=== PATIENT | male | born 1965 | race Caucasian/White ===

== ENCOUNTER 2020-02-17 02:17 | Emergency (ER) | payer OTHER, SELFPAY ==
--- NOTE | ~2020-02-17 | XR_ITS ---
XR chest 2V DATE: 02/17/2020 02:39 INDICATION: Shortness of breath. Chest pressure. Left arm numbness. TECHNIQUE: PA and lateral views COMPARISON: None FINDINGS: Bilateral hyperinflation, relative flattening of the diaphragm and large right apical bulla , consistent with bullous emphysema. No pulmonary infiltrate or consolidation, pleural effusion or pu lmonary vascular congestion or pneumothorax. Normal heart size. No hilar or mediastinal enlargement. IMPRESSION: Bullous emphysema Reviewed, dictated and finalized at location A. IMPRESSION: Bullous emphysema
--- NOTE | 2020-02-17 02:22 | ED.SOB ---
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 EMS states they were called about 20 minutes ago. Pt's sx are worsened when he lays down. EMS states that before the pt left his house via EMS, he began to feel better. Pt had a similar episode last week when he was driving home. Pt states that he had chest pain and dyspnea before taking an ASA. He states that he had to pin puller to take the medication d/t having blurry vision. He states that after 20 minutes he felt better. Pt states that he currently feels better. He notes that his sx started after he put trim on his windows. He states that he began to have chest pressure pain with numbness and tingling in his left arm. He states that he took ASA before his daughter called 911. He states that the last time he was seen by a physician was 25 years ago. Pt reports resolved blurry vision, but denies nausea, diaphoresis, poor appetite, numbness, weakness, lightheadedness, and dizziness. MD elicited complaint: shortness of breath Onset (ago): minute(s) Timing: now resolved Severity: similar to previous episodes Exacerbating factors: lying flat Associated symptoms: other (resolved blurry vision, resolved chest pressure pain with numbness and tingling in his left arm) Treatment prior to arrival: aspirin Related Data Allergies Allergy/AdvReac Type Severity Reaction Status Date / Time No Known Allergies Allergy Mild Verified 07/31/14 22:15 Review of Systems Review of Systems: Narrative: CONSTITUTIONAL: Denies poor appetite. EYES: Reports blurry vision (resolved). CARDIOVASCULAR: Reports chest pressure pain with numbness and tingling in his left arm (resolved). Denies diaphoresis and lightheadedness. RESPIRATORY: Reports dyspnea (resolved). GASTROINTESTINAL: Denies nausea. NEUROLOGIC: Denies numbness, weakness, and dizziness. All systems reviewed & are unremarkable except as noted in HPI and below PMFSH Past Medical History Medical History (Updated 02/17/20 @ 03:47 by Lima Plata MD) Subconjunctival hemorrhage Surgical History Surgical History (Updated 02/17/20 @ 02:36 by Alla Jones) Surgical history unknown Social History Social History (Updated 02/17/20 @ 02:35 by Alla Jones) Smoking status: Current every day smoker Tobacco type: cigarettes Alcohol intake: current Substance use: never Substance use type: does not use Gender identity (if verbalized by the patient): Male Exam Narrative: Exam Narrative: CONSTITUTIONAL: Awake, alert, conversant, thin HEAD: Normocephalic, atraumatic. EYES: EOMI, conjunctiva clear ENT: Nares patent. Mucous membranes moist. NECK: Full range of motion RESPIRATORY: No respiratory distress, speaking in full sentences, no tachypnea HEART: Regular rate ABDOMEN: Non distended, non tender EXTREMITIES: Normal range of motion. No edema SKIN: Warm, dry, no rash. NEUROLOGIC: No focal deficits. Alert and oriented x3. Course Course Emergency Course: Patient presenting for evaluation of shortness of breath that had resolved at the time of assessment. Patient without any current chest pain. Pt with stable vital signs. Patient's EKG and labs are without significant high risk changes. Cardiac risk factors reviewed. Patient is felt low risk for ACS and reasonable for further risk stratification testing as an outpatient. Pain was not sudden or maximal or onset without tearing or ripping quality. No other signs or symptoms to suggest aortic dissection. A low risk well's criteria is noted, PE is felt to be unlikely. No pneumonia seen on evaluation today. Two troponin are undetected. Pt with bleb on CXR and advised importance of smoking cessati
[2020-02-17 02:26] VITALS: BP 140/99; PULSE 66; RESP 13; TEMP 36.5; O2SAT 98
[2020-02-17 02:27] VITALS: PULSE 74
[2020-02-17 02:30] VITALS: BP 140/99; PULSE 66; RESP 16; TEMP 36.7; O2SAT 98
[2020-02-17 03:00] LABS: Basophils Absolute Auto 0.1 K/mm3 (0.0-0.1); Basophils Percent Auto 0.6 % (0.2-1.2); Eosinophils Absolute Auto 0.3 K/mm3 (0-0.3); Eosinophils Percent Auto 3.8 % (0-4.4); Hematocrit 44.7 % (42.0-52.0); Hemoglobin 14.8 g/dL (14.0-18.0); Immature Granulocyte Absolute 0.02 K/mm3 (0.00-0.031); Immature Granulocyte Percent A 0.2 % (0-0.5); Lymphocytes Absolute Auto 4.62 K/mm3 (0.9-3.2); Lymphocytes Percent Auto 52.7 % (18.3-44.2); Mean Corpuscular HGB Conc 33.1 g/dl (32-36); Mean Corpuscular Hemoglobin 30.8 pg (26-34); Mean Corpuscular Volume 93.1 fl (80-100); Mean Platelet Volume 10.1 fl (7.4-10.4); Monocytes Absolute Auto 0.7 K/mm3 (0.1-0.6); Monocytes Percent Auto 7.5 % (2.6-8.5); Neutrophils Absolute Auto 3.1 K/mm3 (1.3-6.7); Neutrophils Percent Auto 35.2 % (45.5-73.1); Platelet Count Result 254 k/mm3 (150-375); Red Cell Distribution Width 12.4 % (11.5-14.5); White Blood Count 8.8 K/mm3 (4.5-10.0)
[2020-02-17 03:13] LABS: INR 0.9; Prothrombin Time 12.1 Seconds (11.1-14.7)
[2020-02-17 03:14] LABS: Partial Thromboplastin Time 30.8 SECONDS (22.3-36.8)
[2020-02-17 03:15] LABS: Blood Urea Nitrogen 15 mg/dL (9-20); Calcium 9.3 mg/dL (8.4-10.2); Carbon Dioxide 31 mmol/L (22-30); Chloride 103 mmol/L (98-107); Estimated CRCL calculation 60 ml/min; Estimated Glomerular Filt Rate > 60; Glucose 82 mg/dL (75-110); Potassium 3.9 mmol/L (3.4-5.0); Sodium 139 mmol/L (137-145)
[2020-02-17 03:27] LABS: Troponin I < 0.012 ng/mL (0.000-0.034)
[2020-02-17 03:32] VITALS: BP 106/67; PULSE 58; RESP 16; O2SAT 98
[2020-02-17 03:44] LABS: NT Pro B Type Natriuretic Pept 66 PG/ML (5-100)
[2020-02-17 05:14] VITALS: BP 111/78; PULSE 52; RESP 16; O2SAT 98
[2020-02-17 05:55] LABS: Troponin I < 0.012 ng/mL (0.000-0.034)
[2020-02-17 06:09] VITALS: BP 112/62; PULSE 56; RESP 18; TEMP 36.8; O2SAT 97
--- NOTE | 2020-02-17 08:24 | ECG_ITS ---
Measurements Intervals [place] Rate: 60 P: 78 [place]: 124 QRS: 75 QRSD: 110 T: 63 QT: 390 QTc: 393 Interpretive Statements SINUS RHYTHM WITH SINUS ARRHYTHMIA BASELINE ARTIFACT- I, II, III, AVR, AVL, AVF NORMAL ECG Electronically Signed On 02-17-2020 16:28:33 CDT by He Hansen D.O.
== END 2020-02-17 06:11 | disposition home or self-care (01) ==
PROVIDERS: Emergency Provider Emergency Medicine
DX: J43.9 Emphysema, unspecified (principal); F17.210 Nicotine dependence, cigarettes, uncomplicated
CPT/HCPCS: 36415; 71046; 80048; 83880; 84484; 85025; 85610; 85730; 93005; 99284

== ENCOUNTER 2020-02-26 08:31 | Outpatient (CLI) | payer OTHER, SELFPAY ==
--- NOTE | 2020-02-26 08:34 | EST_ITS ---
Patient Info Name: Elmer Cooper Age: 54 years : 1965 Gender: Male Ht: 71 in Wt: 114 lbs BSA: 1.59 m2 HR: 56 bpm BP: 116 / 75 mmHg Technical Quality: Good Exam Date: 02/26/2020 9:05 AM Exam Location: [facility] Patient Status: Outpatient Admit Date: 02/26/2020 Staff Ordering Physician: Taylor Coley DO Network Announcer: Loco Haile RDCS Attending Provider: HE FAIRCHILD DO Referring Physician: Vianca CASTELAN; Exercise Technologist: Taylor Dallas RDCS Exercise Physician: He Fairchild DO Exam Type: CA echo dobutamine stress Study Info Indications R07.89 - Other chest pain Dobutamine stress echocardiogram is performed. Summary 1. 1. Negative dobutamine stress test for ischemic ST changes by ECG criteria. 2. 2. Appropriate HR response to catecholamines. 3. 3. Negative dobutamine stress echocardiogram for ischemia by wall motion analysis. 4. 4. Patient informed of the above results. Stress Echo Findings Left Ventricle Appropriate increase in LV endocardial thickening with systole. Appropriate augmentation of contractility with systole. No wall motion abnormality. Left Ventricle Normal LV systolic function, no wall motion abnormality. Protocol: Doubutamine Stress ECG Details Stage: REST Duration (min): 0 min : 49 sec Boswell: --- Speed (mph): 0.0 Grade (%): 0 HR (bpm): 63 SBP (mmHg): 116 DBP (mmHg): 75 METS: --- Stage: REST Duration (min): 1 min : 7 sec Boswell: --- Speed (mph): 0.0 Grade (%): 0 HR (bpm): 82 SBP (mmHg): 116 DBP (mmHg): 75 METS: --- Stage: REST Duration (min): 29 min : 7 sec Boswell: --- Speed (mph): 0.0 Grade (%): 0 HR (bpm): 74 SBP (mmHg): 116 DBP (mmHg): 75 METS: --- Stage: STAGE 1 Duration (min): 1 min : 0 sec Boswell: --- Speed (mph): 0.0 Grade (%): 0 HR (bpm): 67 SBP (mmHg): 94 DBP (mmHg): 66 METS: --- Stage: STAGE 1 Duration (min): 2 min : 0 sec Boswell: --- Speed (mph): 0.0 Grade (%): 0 HR (bpm): 64 SBP (mmHg): 94 DBP (mmHg): 66 METS: --- Stage: STAGE 1 Duration (min): 3 min : 0 sec Boswell: --- Speed (mph): 0.0 Grade (%): 0 HR (bpm): 73 SBP (mmHg): 94 DBP (mmHg): 77 METS: --- Stage: STAGE 2 Duration (min): 1 min : 0 sec Boswell: --- Speed (mph): 0.0 Grade (%): 0 HR (bpm): 77 SBP (mmHg): 94 DBP (mmHg): 77 METS: --- Stage: STAGE 2 Duration (min): 2 min : 0 sec Boswell: --- Speed (mph): 0.0 Grade (%): 0 HR (bpm): 98 SBP (mmHg): 117 DBP (mmHg): 65 METS: --- Stage: STAGE 2 Duration (min): 3 min : 0 sec Boswell: --- Speed (mph): 0.0 Grade (%): 0 HR (bpm): 99 SBP (mmHg): 117 DBP (mmHg): 65 METS: --- Stage: STAGE 3 Duration (min): 1 min : 0 sec Boswell: --- Speed (mph): 0.0 Grade (%): 0 HR (bpm): 125 SBP (mmHg): 118 DBP (mmHg): 61 METS: --- -----
== END 2020-02-26 08:32 | disposition home or self-care (01) ==
PROVIDERS: PCP Family Medicine; Visit Provider Family Medicine
DX: R07.9 Chest pain, unspecified (principal)
CPT/HCPCS: 93351; J0461; J1250

== ENCOUNTER 2021-04-06 05:47 | Emergency (ER) | payer OTHER, SELFPAY ==
--- NOTE | ~2021-04-06 | XR_ITS ---
EXAMINATION: XR knee RT min 4V DATE: 04/06/2021 06:24 INDICATION: Right knee pain TECHNIQUE: Four views of the right knee were obtained. COMPARISON: None. FINDINGS: Alignment is normal. No fracture or osteochondral lesion. Joint spaces are normal with no e rosions. There is a small knee joint effusion. Mild soft tissue swelling is present. IMPRESSION: 1. Small knee joint effusion. Reviewed, dictated and finalized at location A.
--- NOTE | ~2021-04-06 | US_ITS ---
EXAMINATION: US venous doppler LE RT DATE: 04/06/2021 07:29 INDICATION: Right lower limb pain TECHNIQUE: Victoria scale images without and with compression and Doppler images of the right lower extre mity veins were obtained. COMPARISON: None FINDINGS: The right common femoral vein, profunda femoral vein, femoral vein, popliteal vein, peronea l trunk, posterior tibial veins, and greater saphenous vein are patent. IMPRESSION: 1. Patent right lower extremity veins. No evidence of deep venous thrombosis. Reviewed, dictated and finalized at location A.
[2021-04-06 05:54] VITALS: BP 112/77; PULSE 68; RESP 16; TEMP 36.6
--- NOTE | 2021-04-06 07:33 | ED.LOWEXIN ---
HPI - Extremity Injury (Lower) General Chief Complaint: Extremity Injury, Lower Stated Complaint: HURT RIGHT KNEE A WEEK AGO AT WORK Time Seen by Provider: 04/06/21 07:03 Source: RN notes reviewed History of Present Illness HPI Narrative: Patient presents emergency room from home for right knee and calf pain. Patient is approximately a week and a half ago he was stepping out of his bobcat and stepped on step and felt a pop in his right knee and leg he states since that time he had pain in his right anterior knee as well as pain in his right posterior superior calf gets worse with ambulating and walking he states that the area will swell up at times then go back down he denies falling or any direct trauma or injury he denies any ankle or hip pain denies any fevers or chills numbness or tingling or any other symptoms Related Data Allergies Allergy/AdvReac Type Severity Reaction Status Date / Time No Known Allergies Allergy Mild Verified 04/06/21 06:00 Review of Systems Review of Systems: Narrative: Gen.: Denies fevers or chills Musculoskeletal: See HPI Neuro: Denies numbness, tingling, weakness Skin: Denies rash Endo: Denies DM PMFSH Past Medical History Medical History (Updated 04/06/21 @ 07:36 by Jude Castellano DO) Subconjunctival hemorrhage Surgical History Surgical History Surgical history unknown Family History Family History Mother Cerebrovascular accident Social History Social History Smoking status: Current every day smoker Tobacco type: cigarettes Alcohol intake: current Substance use: never Substance use type: does not use Gender identity (if verbalized by the patient): Male Exam Narrative: Exam Narrative: APPEARANCE: No acute distress, nontoxic, resting in bed Eyes: EOMI HEENT: Normocephalic, atraumatic, RESPIRATORY: No respiratory distress MUSCULOSKELETAl: Tender to palpation over the right medial and posterior knee with tenderness in the superior calf there is no swelling or ecchymosis to the calf or the knee there is no tenderness of the anterior lateral knee pain with full flexion of the knee no tenderness of the ankle or hip dorsalis pedis pulse 2+ neurovascular intact, there is movement of the foot with squeezing of the calf muscle with a negative Stevens test NEURO: Awake and alert. Following commands, speech normal, no focal deficits SKIN:: Warm, dry. Normal Color no rash or lesions Course Course Emergency Course: Discussed with patient results of workup and diagnosis. Discussed need for follow-up with primary care, proper use of medication, and reasons to return to the emergency department. Patient understands and agrees to current treatment plan Vital Signs Vital signs: Vital Signs Temperature 97.9 F 04/06/21 05:54 Pulse Rate 68 04/06/21 05:54 Respiratory Rate 16 04/06/21 05:54 Blood Pressure 112/77 04/06/21 05:54 Temperature 97.9 F 04/06/21 05:54 Pulse Rate 68 04/06/21 05:54 Respiratory Rate 16 04/06/21 05:54 Blood Pressure 112/77 04/06/21 05:54 MDM - Extremity Injury (Lower) Imaging Data Radiologist's impression: ITS Impressions Knee X-Ray 04/06/21 06:31 IMPRESSION: 1. Small knee joint effusion. Venous Doppler Study 04/06/21 07:30 IMPRESSION: 1. Patent right lower extremity veins. No evidence of deep venous thrombosis. Discharge Plan Discharge Clinical Impression: Right knee sprain, Strain of right calf muscle Patient Disposition: Home, Self-Care Condition: Stable Instructions: Antibiotic Form, Knee Sprain (ED), Muscle Strain (ED) Additional Instructions: Return for increasing pain numbness or tingling in the extremities or any other symptoms of concern Prescriptions: New ibuprofen [IBU] 600 mg tablet 60
[2021-04-06 08:10] VITALS: BP 111/76; PULSE 66; RESP 18; O2SAT 98
== END 2021-04-06 08:18 | disposition home or self-care (01) ==
PROVIDERS: Emergency Provider Emergency Medicine; PCP Family Medicine
DX: S83.91XA Sprain of unspecified site of right knee, initial encounter (principal); S86.911A Strain of unspecified muscle(s) and tendon(s) at lower leg level, right leg, initial encounter; F17.290 Nicotine dependence, other tobacco product, uncomplicated; X50.9XXA Other and unspecified overexertion or strenuous movements or postures, initial encounter
CPT/HCPCS: 73564; 93971; 99284

== ENCOUNTER 2022-09-24 01:20 | Day surgery (SDC) | payer BC, SELFPAY ==
[2022-09-17 12:59] VITALS: BMI 16.0
[2022-09-24 08:21] VITALS: BP 107/79; PULSE 82; RESP 16; TEMP 36.4; O2SAT 99
[2022-09-24] MEDS: LACTATED RINGERS 1,000 ML 150 ML IV CONT (08:29)
--- NOTE | 2022-09-24 08:30 | PM.HPGS ---
History of Present Illness History of Present Illness Consent: Risks, benefits, and alternatives have been discussed and questions answered. Patient agrees to proceed with procedure. Chief complaint: neoplasm screening Narrative: Elmer Cooper is a 56 year old male referred for colon cancer screening. Review of Systems Review of Systems: All systems reviewed & are unremarkable except as noted in HPI and below PMFSH Past Medical History Medical History Subconjunctival hemorrhage Surgical History Surgical History Surgical history unknown Family History Family History Mother Cerebrovascular accident Social History Social History Smoking packs per day: 1 Smoking cigarettes per day: 20.0 Years smoked: 43 Smoking pack-years: 43.00 Smoking status: Current every day smoker Tobacco type: cigarettes Alcohol intake: current Alcohol use details: rare occasions Substance use: never Substance use type: does not use Living arrangements: with family Additional living arrangements comments: daughter Dora lives with him Gender identity (if verbalized by the patient): Male Spiritual care concerns: No Meds Home Medications and Allergies Home Medications Medication Instructions Recorded Confirmed Type pravastatin 20 mg tablet 20 mg PO .qhs #90 tabs 02/27/20 09/24/22 Rx tiotropium bromide 2.5 2 inhalation inhalation DAILY #4 05/05/20 09/24/22 Rx mcg/actuation mist for inhalation grams (Spiriva Respimat) ibuprofen 200 mg tablet (Advil) 200 mg PO PRN PRN Pain 09/17/22 09/24/22 History Allergies Allergy/AdvReac Type Severity Reaction Status Date / Time No Known Allergies Allergy Mild Verified 09/24/22 08:18 Vital Signs Vital Signs - 24 hr 09/24/22 08:21 Temperature 36.4 C L Pulse Rate 82 Respiratory Rate 16 Blood Pressure 107/79 Pulse Oximetry 99 Oxygen Delivery Room Air Exam Const: General: alert Orientation/consciousness: patient oriented x3 Resp: Auscultation: clear to auscultation bilaterally Cardio: Rhythm: regular rhythm GI: GI Palp: Yes Soft to palpation and No Tenderness to palpation present (GI) Neuro: General: patient oriented x3 Assessment and Plan Assessment and plan (1) Colon cancer screening: Code(s): Z12.11 - Encounter for screening for malignant neoplasm of colon Status: Acute Assessment and Plan: Colonoscopy with possible biopsy or polypectomy or cautery or injection of substances.
[2022-09-24 09:20] VITALS: BP 92/62; PULSE 95; RESP 16; O2SAT 97
[2022-09-24 09:30] VITALS: BP 88/63; PULSE 72; RESP 16; O2SAT 96
[2022-09-24 09:40] VITALS: BP 104/73; PULSE 69; RESP 16; O2SAT 97
== END 2022-09-24 09:55 | disposition home or self-care (01) ==
PROVIDERS: PCP Nurse Practitioner Family; Visit Provider Internal Medicine Gastroenterology
PROC: 0DJD8ZZ Inspection of Lower Intestinal Tract, Via Natural or Artificial Opening Endoscopic (ICD-10-PCS; CPT 45378; principal; 2022-09-24 09:30)
DX: Z12.11 Encounter for screening for malignant neoplasm of colon (principal); K57.30 Diverticulosis of large intestine without perforation or abscess without bleeding; K64.8 Other hemorrhoids; F17.210 Nicotine dependence, cigarettes, uncomplicated
CPT/HCPCS: 45378; J2704; J7120